=== PATIENT | female | born 1995 | race Two or more races ===

== ENCOUNTER 2021-05-28 18:19 | Inpatient (IN) | payer OTHER ==
[~2021-05-28] VITALS: Ht 160 cm; Wt 64.9 kg
[~2021-05-28 18:19] MED LIST: PEPCID AC20 MG PO; PHENERGAN25 MG PO; TYLENOL-CODEINE1 TAB PO
[2021-05-31] MEDS ORDERED: DICLEGIS DR 101 EACH PO (09:14)
[2021-05-31] MEDS ORDERED: PEPCID AC20 MG PO (09:19)
== END 2021-05-31 10:42 | disposition home or self-care (01) | DRG 833 ==
LOC: OB/GYN 18:19
PROVIDERS: ADMIT Obstetrics & Gynecology; ATTEND Obstetrics & Gynecology
PROC: 4A1HXCZ Monitoring of Products of Conception, Cardiac Rate, External Approach (ICD-10-PCS; principal; 2021-05-28)
DX: O21.1 Hyperemesis gravidarum with metabolic disturbance (principal); Z3A.12 12 weeks gestation of pregnancy; Z20.822 Contact with and (suspected) exposure to COVID-19

== ENCOUNTER 2021-08-28 14:27 | Outpatient (CLI) | payer OTHER ==
[~2021-08-28 14:27] MED LIST changes: +DICLEGIS DR 101 EACH PO
== END 2021-08-28 15:47 | disposition home or self-care (01) ==
LOC: PRENATAL 14:27
PROVIDERS: ATTEND Obstetrics & Gynecology Maternal & Fetal Medicine
DX: O35.0XX0 Maternal care for (suspected) central nervous system malformation in fetus, not applicable or unspecified (principal); O35.3XX0 Maternal care for (suspected) damage to fetus from viral disease in mother, not applicable or unspecified; O26.892 Other specified pregnancy related conditions, second trimester; Z3A.25 25 weeks gestation of pregnancy; Z88.6 Allergy status to analgesic agent

== ENCOUNTER 2021-11-04 08:10 | Outpatient (CLI) | payer OTHER | END 2021-11-04 09:27 | disposition home or self-care (01) | LOC: PRENATAL 08:10 | PROVIDERS: ATTEND Obstetrics & Gynecology Maternal & Fetal Medicine | DX: O26.849 Uterine size-date discrepancy, unspecified trimester (principal); O36.8199 Decreased fetal movements, unspecified trimester, other fetus; O35.0XX0 Maternal care for (suspected) central nervous system malformation in fetus, not applicable or unspecified; Z3A.35 35 weeks gestation of pregnancy ==

== ENCOUNTER 2021-11-13 17:51 | Inpatient (IN) | payer OTHER ==
[~2021-11-13] VITALS: Ht 160 cm; Wt 70.8 kg
== END 2021-11-16 13:13 | disposition home or self-care (01) | DRG 807 ==
LOC: LDR 17:51 → OB/GYN 11-14 21:02
PROVIDERS: ADMIT Obstetrics & Gynecology; ATTEND Obstetrics & Gynecology
PROC: 4A1HXCZ Monitoring of Products of Conception, Cardiac Rate, External Approach (ICD-10-PCS; 2021-11-13)
PROC: 10E0XZZ Delivery of Products of Conception, External Approach (ICD-10-PCS; principal; 2021-11-14)
DX: O60.14X0 Preterm labor third trimester with preterm delivery third trimester, not applicable or unspecified (principal); Z37.0 Single live birth; Z3A.36 36 weeks gestation of pregnancy; Z20.822 Contact with and (suspected) exposure to COVID-19